=== PATIENT | male | born 1995 | race Caucasian/White ===

== ENCOUNTER 2022-01-27 22:45 | Emergency (ER) | payer MEDICAID ==
[2022-01-27] MEDS ORDERED: Lidocaine 2% Viscous Solution 15 ML UD PO ONE (22:46)
[2022-01-27] MEDS ORDERED: Lidocaine 2% Viscous Solution 15 ML UD ONE (23:47)
[2022-01-27] MEDS ORDERED: Ketorolac 30 MG/ML SDV IM ONE (23:57)
[2022-01-28] MEDS ORDERED: Lidocaine 2% Viscous Solution 15 ML UD ONE (00:04)
== END 2022-01-28 00:01 | disposition home or self-care (01) ==
LOC: DL.ED 22:45
DX: K08.89 Other specified disorders of teeth and supporting structures (principal); Z72.0 Tobacco use
CPT/HCPCS: 64400; 96372; 99282; J1885

== ENCOUNTER 2022-02-03 18:31 | Emergency (ER) | payer MEDICAID ==
[2022-02-03] MEDS ORDERED: Sodium Chloride 0.9% 10 ML Syringe FLUSH PRN (18:39)
[2022-02-03] MEDS ORDERED: Ondansetron 4 MG/2 ML SDV IV ONE (18:40)
[2022-02-03] MEDS ORDERED: Sodium Chloride 0.9% 1,000 ML IV ONE (18:40)
[2022-02-03 19:21] LABS: RESPIRATORY SYNCYTIAL VIR NAA NEGATIVE (NEGATIVE)
[2022-02-03 19:24] LABS: CORONAVIRUS COVID-19 NAA POSITIVE (NEGATIVE)
[2022-02-03 19:29] LABS: ANION GAP 13.8 mEq/L (7-13)
== END 2022-02-03 20:49 | disposition home or self-care (01) ==
LOC: DL.ED 18:31
DX: U07.1 COVID-19 (principal); E66.9 Obesity, unspecified; Z68.44 Body mass index [BMI] 60.0-69.9, adult; Z72.0 Tobacco use
CPT/HCPCS: 0241U; 36415; 80053; 81001; 82150; 83605; 84484; 85025; 85379; 87040; 93005; 96361; 96374; 99284-25; J2405; J3490; J7030

== ENCOUNTER 2022-06-05 11:58 | Emergency (ER) | payer SELFPAY ==
[2022-06-05] MEDS ORDERED: Acetaminophen/HYDROcodone 325-10 MG Tab PO ONE (11:59)
[2022-06-05] MEDS ORDERED: Ketorolac 30 MG/ML SDV IM ONE (12:22)
[2022-06-05] MEDS ORDERED: Acetaminophen/HYDROcodone 325-10 MG Tab ONE (12:50)
== END 2022-06-05 13:15 | disposition home or self-care (01) ==
LOC: EDBD → MERGE 11:58 → DL.ED 11:58
DX: S80.01XA Contusion of right knee, initial encounter (principal); Z88.2 Allergy status to sulfonamides; W00.0XXA Fall on same level due to ice and snow, initial encounter
CPT/HCPCS: 73562-RT; 96372; 99283; 99284; A9270-GY; J1885

== ENCOUNTER 2022-08-12 11:31 | Emergency (ER) | payer MEDICAID ==
[2022-08-12] MEDS ORDERED: Sodium Chloride 0.9% 10 ML Syringe FLUSH PRN (11:43)
[2022-08-12 11:56] LABS: BASOPHILS PERCENT AUTO 0.4 % (0.0-1.0); EOSINOPHILS PERCENT AUTO 2.1 % (1.0-3.0); HEMATOCRIT 46.3 % (40.0-54.0); HEMOGLOBIN 14.5 g/dL (14.0-18.0); LYMPHOCYTES PERCENT AUTO 26.7 % (20.5-50.1); MEAN CORPUSCULAR HEMOGLOBIN 28.7 pg (27.0-34.0); MEAN CORPUSCULAR HGB CONC 31.3 g/dL (33.0-35.0); MEAN CORPUSCULAR VOLUME 91.7 fL (80-100); MONOCYTES PERCENT AUTO 7.5 % (2-8); NEUTROPHILS PERCENT AUTO 63.3 % (42.2-75.2); PLATELET COUNT,PLT 246 10^3/uL (150-450); RED BLOOD CELL COUNT 5.05 10^6/uL (4.6-6.2); WHITE BLOOD CELL COUNT,WBC 7.6 10^3/uL (5.0-10.0)
[2022-08-12 12:17] LABS: ALBUMIN 3.7 g/dL (3.4-5.0); ANION GAP 11.9 mEq/L (7-13); BILIRUBIN TOTAL 0.6 mg/dL (0.2-1.0); BUN/CREATININE RATIO 15.4 (No establ ref range); CALCIUM 8.7 mg/dL (8.5-10.1); CREATININE 0.78 mg/dL (0.70-1.30); EST CRCL DRUG DOSING (CG) 154.76 mL/min; POTASSIUM,K 3.9 mmol/L (3.5-5.1); PROTEIN TOTAL,TP 7.3 g/dL (6.4-8.2)
== END 2022-08-12 12:51 | disposition home or self-care (01) ==
LOC: DL.ED 11:31
DX: R07.9 Chest pain, unspecified (principal); R51.9 Headache, unspecified; E66.9 Obesity, unspecified; Z68.44 Body mass index [BMI] 60.0-69.9, adult; Z88.2 Allergy status to sulfonamides
CPT/HCPCS: 36415; 71045; 80053; 82947; 84484; 85025; 93005; 99285

== ENCOUNTER 2023-03-20 18:17 | Emergency (ER) | payer MEDICAID ==
[~2023-03-20 18:17] MED LIST: Lactated Ringers 1,000 ML IV ONE; Ondansetron 4 MG/2 ML SDV IVPUSH ONE
[2023-03-20 18:39] LABS: BASOPHILS PERCENT AUTO 0.2 % (0.0-1.0); EOSINOPHILS PERCENT AUTO 2.6 % (1.0-3.0); HEMATOCRIT 45.4 % (40.0-54.0); HEMOGLOBIN 13.9 g/dL (14.0-18.0); LYMPHOCYTES PERCENT AUTO 34.7 % (20.5-50.1); MEAN CORPUSCULAR HEMOGLOBIN 29.3 pg (27.0-34.0); MEAN CORPUSCULAR HGB CONC 30.6 g/dL (33.0-35.0); MEAN CORPUSCULAR VOLUME 95.6 fL (80-100); MONOCYTES PERCENT AUTO 10.8 % (2-8); NEUTROPHILS PERCENT AUTO 51.7 % (42.2-75.2); PLATELET COUNT,PLT 235 10^3/uL (150-450); RED BLOOD CELL COUNT 4.75 10^6/uL (4.6-6.2); WHITE BLOOD CELL COUNT,WBC 6.6 10^3/uL (5.0-10.0)
[2023-03-20 18:55] LABS: ALBUMIN 3.2 g/dL (3.4-5.0); ANION GAP 11.2 mEq/L (7-13); BILIRUBIN TOTAL 0.4 mg/dL (0.2-1.0); BUN/CREATININE RATIO 13.7 (No establ ref range); CALCIUM 8.3 mg/dL (8.5-10.1); CREATININE 0.73 mg/dL (0.70-1.30); EST CRCL DRUG DOSING (CG) 163.88 mL/min; MAGNESIUM 1.7 mg/dL (1.8-2.4); POTASSIUM,K 4.2 mmol/L (3.5-5.1); PROTEIN TOTAL,TP 6.8 g/dL (6.4-8.2)
[2023-03-20 19:07] LABS: A/G RATIO 0.89
[2023-03-20] MEDS ORDERED: Magnesium Sulfate/Water 2 GM in Premix Bag 1 BAG IV ONE (19:09)
[2023-03-20 20:00] LABS: APPEARANCE,URINE CLEAR (CLEAR); BILIRUBIN,URINE NEGATIVE (NEGATIVE); COLOR,URINE YELLOW (YELLOW); GLUCOSE,URINE NEGATIVE (NEGATIVE); KETONES,URINE NEGATIVE (NEGATIVE); LEUKOCYTE ESTERASE,URINE NEGATIVE (NEGATIVE); NITRITE,URINE NEGATIVE (NEGATIVE); OCCULT BLOOD,URINE NEGATIVE (NEGATIVE); PROTEIN,URINE 30 (NEGATIVE); UROBILINOGEN,URINE 0.2 mg/dL (0.2-1.0)
[2023-03-20] MEDS ORDERED: Sodium Chloride 0.9% 100 ML IV SCH (20:15)
[2023-03-20 20:34] LABS: BACTERIA,URINE FEW /HPF (0-FEW/HPF); EPITHELIAL CELLS,URINE FEW /HPF (NOT SEEN); HYALINE CASTS,URINE FEW; MUCUS,URINE MODERATE /LPF (NOT SEEN); RBC,URINE 0-5 /HPF (0-5); WBC,URINE 0-5 /HPF (0-5/HPF)
[2023-03-20] MEDS ORDERED: Furosemide 20 MG Tab PO ONE (21:03)
== END 2023-03-20 21:24 | disposition home or self-care (01) ==
LOC: DL.ED 18:17
DX: R60.0 Localized edema (principal); E83.42 Hypomagnesemia; R03.0 Elevated blood-pressure reading, without diagnosis of hypertension; E11.649 Type 2 diabetes mellitus with hypoglycemia without coma; Z87.891 Personal history of nicotine dependence; Z79.899 Other long term (current) drug therapy; Z88.2 Allergy status to sulfonamides; Z88.8 Allergy status to other drugs, medicaments and biological substances
CPT/HCPCS: 36415; 80053; 81001; 83690; 83735; 83880; 85025; 96361; 96365; 96375; 99284; 99284-25; A9270-GY; J2405; J3475; J3490; J7120

== ENCOUNTER 2023-12-22 05:56 | Emergency (ER) | payer MEDICAID ==
[2023-12-22] MEDS ORDERED: Sodium Chloride 0.9% 10 ML Syringe FLUSH PRN (06:03)
[2023-12-22 06:20] LABS: BASOPHILS PERCENT AUTO 0.3 % (0.0-1.0); EOSINOPHILS PERCENT AUTO 1.3 % (1.0-3.0); HEMATOCRIT 43.6 % (40.0-54.0); HEMOGLOBIN 13.4 g/dL (14.0-18.0); LYMPHOCYTES PERCENT AUTO 31.6 % (20.5-50.1); MEAN CORPUSCULAR HEMOGLOBIN 29.1 pg (27.0-34.0); MEAN CORPUSCULAR HGB CONC 30.7 g/dL (33.0-35.0); MEAN CORPUSCULAR VOLUME 94.8 fL (80-100); NEUTROPHILS PERCENT AUTO 57.8 % (42.2-75.2); PLATELET COUNT,PLT 251 10^3/uL (150-450)
[2023-12-22 06:35] LABS: A/G RATIO 0.9; ALBUMIN 3.6 g/dL (3.4-5.0); ANION GAP 12.6 mEq/L (7-13); BILIRUBIN TOTAL 0.4 mg/dL (0.2-1.0); BUN/CREATININE RATIO 13.8 (No establ ref range); CALCIUM 8.8 mg/dL (8.5-10.1); CREATININE 0.94 mg/dL (0.70-1.30); EST CRCL DRUG DOSING (CG) 127.27 mL/min; POTASSIUM,K 3.6 mmol/L (3.5-5.1); PROTEIN TOTAL,TP 7.5 g/dL (6.4-8.2)
[2023-12-22 07:17] LABS: APPEARANCE,URINE SLIGHTLY CLOUDY (CLEAR); BILIRUBIN,URINE SMALL (NEGATIVE); COLOR,URINE DARK YELLOW (YELLOW); GLUCOSE,URINE NEGATIVE (NEGATIVE); KETONES,URINE NEGATIVE (NEGATIVE); LEUKOCYTE ESTERASE,URINE NEGATIVE (NEGATIVE); NITRITE,URINE NEGATIVE (NEGATIVE); OCCULT BLOOD,URINE LARGE (NEGATIVE); PH,URINE 6.5 (5.0-9.0); PROTEIN,URINE 100 (NEGATIVE)
[2023-12-22 07:28] LABS: BACTERIA,URINE FEW /HPF (0-FEW/HPF); CALCIUM OXALATE CRYSTALS,URINE FEW /HPF (NOT SEEN); EPITHELIAL CELLS,URINE RARE /HPF (NOT SEEN); MUCUS,URINE MODERATE /LPF (NOT SEEN); RBC,URINE 75-100 /HPF (0-5)
== END 2023-12-22 07:56 | disposition left against medical advice (07) ==
LOC: DL.ED 05:56
DX: N23 Unspecified renal colic (principal); E11.9 Type 2 diabetes mellitus without complications; Z88.2 Allergy status to sulfonamides; Z88.8 Allergy status to other drugs, medicaments and biological substances; Z79.899 Other long term (current) drug therapy
CPT/HCPCS: 36415; 74018; 80053; 81001; 82550; 85025; 99284

== ENCOUNTER 2024-08-01 22:25 | Emergency (ER) | payer MEDICAID ==
[2024-08-01 23:00] LABS: HEMATOCRIT 44.2 % (40.0-54.0); HEMOGLOBIN 13.6 g/dL (14.0-18.0); MEAN CORPUSCULAR HEMOGLOBIN 28.7 pg (27.0-34.0); MEAN CORPUSCULAR HGB CONC 30.8 g/dL (33.0-35.0); MEAN CORPUSCULAR VOLUME 93.2 fL (80-100); PLATELET COUNT,PLT 283 10^3/uL (150-450); RED BLOOD CELL COUNT 4.74 10^6/uL (4.6-6.2); WHITE BLOOD CELL COUNT,WBC 8.8 10^3/uL (5.0-10.0)
[2024-08-01] MEDS: Acetaminophen 500 MG Tab PO ONE (23:02)
[2024-08-01 23:07] LABS: BASOPHILS PERCENT AUTO 0.5 % (0.0-1.0); EOSINOPHILS PERCENT AUTO 1.9 % (1.0-3.0); LYMPHOCYTES PERCENT AUTO 36.8 % (20.5-50.1); MONOCYTES PERCENT AUTO 7.6 % (2-8); NEUTROPHILS PERCENT AUTO 53.2 % (42.2-75.2)
[2024-08-01 23:21] LABS: A/G RATIO 0.8; ALBUMIN 3.5 g/dL (3.4-5.0); ANION GAP 10.9 mEq/L (7-13); BILIRUBIN TOTAL 0.4 mg/dL (0.2-1.0); BUN/CREATININE RATIO 16.7 (No establ ref range); CALCIUM 9.1 mg/dL (8.5-10.1); CREATININE 0.84 mg/dL (0.70-1.30); EST CRCL DRUG DOSING (CG) 141.14 mL/min; POTASSIUM,K 3.9 mmol/L (3.5-5.1); PROTEIN TOTAL,TP 7.9 g/dL (6.4-8.2)
[2024-08-01 23:24] LABS: LACTIC ACID 1.4 mmol/L (0.4-2.0)
[2024-08-01 23:42] LABS: APPEARANCE,URINE SLIGHTLY CLOUDY (CLEAR); BILIRUBIN,URINE NEGATIVE (NEGATIVE); COLOR,URINE YELLOW (YELLOW); GLUCOSE,URINE NEGATIVE (NEGATIVE); KETONES,URINE NEGATIVE (NEGATIVE); LEUKOCYTE ESTERASE,URINE NEGATIVE (NEGATIVE); NITRITE,URINE NEGATIVE (NEGATIVE); OCCULT BLOOD,URINE NEGATIVE (NEGATIVE); PROTEIN,URINE TRACE (NEGATIVE); UROBILINOGEN,URINE 0.2 mg/dL (0.2-1.0)
[2024-08-01 23:52] LABS: BACTERIA,URINE FEW /HPF (0-FEW/HPF); EPITHELIAL CELLS,URINE MODERATE /HPF (NOT SEEN); MUCUS,URINE FEW /LPF (NOT SEEN); RBC,URINE 0-5 /HPF (0-5)
[2024-08-01 23:59] LABS: EOSINOPHILS PERCENT MAN 2 % (1-3); LYMPHOCYTES PERCENT MAN 29 % (20-50); MONOCYTES PERCENT MAN 8 % (2-8); SEG NEUTROPHILS PERCENT MAN 61 % (42-75)
== END 2024-08-02 00:06 | disposition home or self-care (01) ==
LOC: DL.ED 22:25
DX: B34.9 Viral infection, unspecified (principal); M79.10 Myalgia, unspecified site; E11.9 Type 2 diabetes mellitus without complications; Z88.2 Allergy status to sulfonamides; Z88.8 Allergy status to other drugs, medicaments and biological substances; Z79.899 Other long term (current) drug therapy
CPT/HCPCS: 80053; 81001; 83605; 85025; 87081; 87428; 87430; 99284; A9270

== ENCOUNTER 2024-09-26 11:11 | Emergency (ER) | payer MEDICAID ==
[2024-09-26] MEDS: Orphenadrine 60 MG/2 ML Inj IM ONE (11:42)
== END 2024-09-26 12:50 | disposition home or self-care (01) ==
LOC: DL.ED 11:11
DX: S39.012A Strain of muscle, fascia and tendon of lower back, initial encounter (principal); E11.9 Type 2 diabetes mellitus without complications; Z88.2 Allergy status to sulfonamides; Z88.8 Allergy status to other drugs, medicaments and biological substances; Z79.899 Other long term (current) drug therapy; W18.39XA Other fall on same level, initial encounter; Y93.89 Activity, other specified
CPT/HCPCS: 72100; 96372; 99283; J2270; J2360